=== PATIENT | male | born 2000 | race Caucasian/White ===

== ENCOUNTER 2022-07-28 11:45 | Emergency (ER) | payer BC, SELFPAY ==
[2022-07-28 12:15] VITALS: BP 160/89; PULSE 100; RESP 16; TEMP 36.9; O2SAT 99
--- NOTE | 2022-07-28 12:51 | ED.SKABFB ---
HPI - Skin/Abscess/Foreign Bdy General Chief complaint: Skin/Abscess/Foreign Body Stated complaint: cyst on upper buttocks Time Seen by Provider: 07/28/22 12:30 Source: patient Mode of arrival: ambulatory Limitations: no limitations History of Present Illness HPI narrative: Anthony is a 22-year-old male patient presenting to the clinic today with complaints of a possible cyst to the upper buttocks. He reports that he has noticed this not since he was in high school however over the last few days is becoming more red and swollen. It is painful to sit down. As he was sitting in the exam room the area opened up and began to drain some brown whitish discharge Related Data Allergies Allergy/AdvReac Type Severity Reaction Status Date / Time egg Allergy Unknown Skin Verified 07/28/22 12:43 Reaction nut - unspecified Allergy Unknown Skin Verified 07/28/22 12:43 Reaction peanut Allergy Unknown hives Verified 07/28/22 12:43 Review of Systems Review of Systems: Pertinent positives per HPI. Patient denies any fever, chills, rash, headache, visual changes, dizziness, cough, runny nose, sore throat, shortness of breath, chest pain, palpitations, nausea, vomiting, diarrhea, constipation, abdominal pain, or any urinary issues. [facility] Social History Social History Smoking status: Never smoker Second hand tobacco smoke exposure: No Alcohol intake: never Comments At the time of my signature, I reviewed and agree with the nursing past medical, surgical, social, and family history. There is no relevant family history pertinent to the patient complaint. Exam Narrative: General: Well-developed, well nourished, in no apparent distress Head: Normocephalic, atraumatic. Cardio: Regular rate and rhythm, s1 and s2 normal, no murmur appreciated. Resp: Clear to auscultation bilaterally, no rhonchi, rales, wheezing or rubs. Integumentary: [place], warm, and dry, 2 cm x 2 cm indurated open cyst draining brownish white discharge. Foul smelling. Cyst was fully evacuated and culture was obtained Course Course Emergency Course: Portions of this record may have been created with voice recognition software. Level of Care: Express Care Visit Vital Signs Vital signs: Vital Signs Temperature 36.9 C 07/28/22 12:15 Pulse Rate 100 07/28/22 12:15 Respiratory Rate 16 07/28/22 12:15 Blood Pressure 160/89 H 07/28/22 12:15 Pulse Oximetry 99 07/28/22 12:15 Temperature 36.9 C 07/28/22 12:15 Pulse Rate 100 07/28/22 12:15 Respiratory Rate 16 07/28/22 12:15 Blood Pressure 160/89 H 07/28/22 12:15 Pulse Oximetry 99 07/28/22 12:15 Vital signs reviewed MDM - Skin/Abscess/Foreign Bdy MDM Narrative Medical decision making narrative: At the time of visit patient is resting comfortably on the exam table. While sitting in the triage went room waiting on the provider this cyst opened up and started to drain. Culture was obtained and the patient was placed on Augmentin. Supportive measures were discussed with the patient he voiced understanding of discharge instructions and agrees to treatment plan Differential Diagnosis Differential diagnosis: Likely other (Infected pilonidal cyst, abscess) Discharge Plan Discharge Clinical Impression: Infected pilonidal cyst Patient Disposition: Home, Self-Care Condition: Stable Instructions: Antibiotic Form, Pilonidal Cyst (ED) Additional Instructions: Keep wound clean and dry Take antibiotics as prescribed Wound culture was obtained and sent to the lab May take Tylenol/Motrin as needed for pain May apply warm moist hot packs to the affected area to help facilitate drainage Follow-up with your PCP in 3-5 days if symptoms persist or sooner if they worsen Prescriptions: New amoxicillin-pot clavulanate 875-125 mg tablet 1 tablet PO Q12H 7 Days Qty: 14 0RF No Action albuterol sulfate [P
== END 2022-07-28 12:55 | disposition home or self-care (01) ==
PROVIDERS: Emergency Provider Nurse Practitioner Family; PCP Family Medicine
DX: L05.91 Pilonidal cyst without abscess (principal)
CPT/HCPCS: 87070; 87075; 87076; 87147; 87185; 87205; 99213; G0463

== ENCOUNTER 2023-11-12 18:14 | Emergency (ER) | payer BC, SELFPAY ==
[2023-11-12] VITALS (34 sets, daily range): BP systolic 113–147; BP diastolic 56–85; PULSE 62–90; RESP 12–25; TEMP 36.9; O2SAT 92–100
--- NOTE | 2023-11-12 18:31 | ED.ALLEREA ---
HPI - Allergic Reaction General Chief complaint: Allergic Reaction Stated complaint: allergy Time Seen by Provider: 11/12/23 18:24 History of Present Illness HPI narrative: patient is a 23-year-old male presenting with an allergic reaction. States he is allergic to peanuts and he ate a baked good approximately 35 minutes ago that he thinks contained peanuts. States that he took 50 mg of Benadryl and came in for evaluation. His throat feels itchy and swollen and he feels nauseated. No shortness of breath. States that this has happened in the past. Related Data Allergies Allergy/AdvReac Type Severity Reaction Status Date / Time egg Allergy Unknown Skin Verified 11/12/23 18:28 Reaction nut - unspecified Allergy Unknown Skin Verified 11/12/23 18:28 Reaction peanut Allergy Unknown hives Verified 11/12/23 18:28 Review of Systems Review of Systems: All systems reviewed & are unremarkable except as noted in HPI and below PMFSH Social History Social History Smoking status: Never smoker Second hand tobacco smoke exposure: No Alcohol intake: never Exam Narrative: GENERAL: Well-appearing, In no acute distress, pleasant cooperative HEAD: Normocephalic, atraumatic. EYES: PERRLA and EOMI. ENT: no tongue or posterior pharyngeal swelling, handling secretions well NECK: Supple. CHEST: Clear to auscultation. No respiratory distress. no wheezing HEART: Regular rate and rhythm. EXTREMITIES: Normal range of motion. SKIN: Warm, dry. erythematous rash to chest going up anterior neck NEURO: No focal deficits. Alert and oriented x3. PSYCH: Normal mood and affect. Course Vital Signs Vital signs: Vital Signs Temperature 98.5 F 11/12/23 18:22 Pulse Rate 75 11/12/23 18:22 Respiratory Rate 20 11/12/23 18:22 Blood Pressure 142/78 H 11/12/23 18:22 Pulse Oximetry 95 11/12/23 18:22 Oxygen Delivery Room Air 11/12/23 18:22 Temperature 98.5 F 11/12/23 18:22 Pulse Rate 76 11/12/23 22:16 Respiratory Rate 24 H 11/12/23 22:16 Blood Pressure 129/74 11/12/23 22:15 Pulse Oximetry 92 03/12/24 22:16 Oxygen Delivery Room Air 11/12/23 18:26 MDM - Allergic Reaction MDM Narrative Medical decision making narrative: 23-year-old male presenting with allergic reaction. In here he gave himself 50 mg of Benadryl. Vitals are stable. Exam remarkable for the above. Plan for epi, fluids, steroids, Pepcid and 4 hours of observation. patient improved following meds. Vital signs remain within normal Limits. Feel he is safe for outpatient management. Will send in for Medrol Dosepak, Pepcid, EpiPen. Advised close PCP follow-up. Strict return precautions given. Discharged in stable condition. Differential Diagnosis Differential diagnosis: Likely anaphylaxis, allergic reaction and urticaria Medical Records Attestation: I reviewed the patient's medical records. Critical Care Time Critical Care Time Critical Care Time: Yes Total Critical Care Time: 35 Discharge Plan Discharge Clinical Impression: Anaphylaxis Patient Disposition: Home, Self-Care Condition: Stable Instructions: Antibiotic Form, Anaphylaxis (ED) Additional Instructions: Please take the steroids and Pepcid as prescribed. You may use Benadryl as well. Please use the EpiPen as needed. Follow-up closely with your PCP. If your symptoms worsen or other concerning symptoms arise, please return to the ER. Prescriptions: New epinephrine [EpiPen 2-Vijay] 0.3 mg/0.3 mL auto-injector 0.3 ml IM Q5-15M PRN (Reason: anaphylaxis) Qty: 2 0RF Rx Instructions: do not exceed 3 doses per episode famotidine [Pepcid] 20 mg tablet 20 mg PO DAILY Qty: 20 0RF methylprednisolone [Medrol (Vijay)] 4 mg tablets,dose pack See Rx Instructions .ROUTE .COMPLEX Qty: 21 0RF Rx Instructions: orally per package directions No Action albuterol rawls
[2023-11-12] MEDS: EPINEPHrine HCL INJ 1 MG/ML AMPUL 0.3 MG IM (18:40)
[2023-11-12] MEDS: methylPREDNISolone SOD SUCC 125 MG VIAL IV PUSH (18:42)
[2023-11-12] MEDS: FAMOTIDINE 20 MG/2 ML VIAL IV PUSH (18:44)
[2023-11-12] MEDS: SODIUM CHLORIDE 0.9% IV 1,000 ML 999 ML IV CONT (18:44)
--- NOTE | 2023-11-12 20:36 | PC.NURSE ---
patient states that his throat is still feeling scratchy and c/o nausea. provider aware
[2023-11-12] MEDS: diphenhydrAMINE HCl INJ 50 MG/ML VIAL IV PUSH (20:40)
[2023-11-12] MEDS: ONDANSETRON INJ 4 MG/2 ML VIAL IV PUSH (21:16)
== END 2023-11-12 22:22 | disposition home or self-care (01) ==
PROVIDERS: Emergency Provider Emergency Medicine; PCP Family Medicine
DX: T78.01XA Anaphylactic reaction due to peanuts, initial encounter (principal); Z91.010 Allergy to peanuts
CPT/HCPCS: 96361; 96372; 96374; 96375; 99284; J0171; J1200; J2405; J2930; J7030